=== PATIENT | male | born 1995 | race Hispanic/Latino ===

== ENCOUNTER 2023-04-21 08:29 | Emergency (ER) | payer SELFPAY ==
[2023-04-21] MEDS ORDERED: Ketorolac Tromethamine 30 MG/ML VIAL ONE (10:07)
[2023-04-21 10:19] LABS: #Basophils 0.1 10x3/uL (0.0-0.2); #Eosinphils 0.2 10x3/uL (0.0-0.5); #Monocytes 0.8 10x3/uL (0.0-1.1); #Neutrophils 2.5 10x3/uL (1.5-8.4); %Eosinophils 3.3 % (0.0-6.0); %Lymphocytes 31.8 % (18.0-47.0); %Monocytes 14.9 % (0.0-10.0); %Neutrophils 48.8 % (40.0-75.0); Hematocrit 43.8 % (38.8-50.0); Hemoglobin 15.2 g/dL (13.5-17.5); Mean Corpuscular HGB CONC 34.7 g/dL (32.0-36.0); Mean Corpuscular Hemoglobin 32.8 pg (27.0-33.0); Mean Corpuscular Volume 94.4 fl (81.2-95.1); Mean Platelet Volume 9.3 fl (7.4-10.4); Platelet Count 325 10x3/uL (150-450); Red Blood Cell (RBC) Count 4.64 10x6/uL (4.32-5.72); White Blood Cell (WBC) Count 5.1 10x3/uL (3.5-10.5)
[2023-04-21 10:41] LABS: ALT (SGPT) 33 U/L (8-55); AST (SGOT) 29 U/L (5-34); Albumin 4.4 g/dL (3.5-5.0); Alkaline Phosphatase 72 U/L (40-110); Anion Gap 15 mmol/L (10-20); BUN (Urea Nitrogen) 17 mg/dL (8.9-20.6); Bilirubin, Total 0.4 mg/dL (0.2-1.2); CK (CPK) 71 U/L (30-200); Calc. Creatinine Clearance 0 mL/min (70-130); Calcium 10.1 mg/dL (7.8-10.44); Carbon Dioxide 27 mmol/L (22-29); Chloride 101 mmol/L (98-107); Estimated GFR 118; Globulin 3.2 g/dL (2.4-3.5); Glucose 94 mg/dL (70-105); Potassium 4.3 mmol/L (3.5-5.1); Protein, Total 7.6 g/dL (6.0-8.3); Sodium 139 mmol/L (136-145)
== END 2023-04-21 11:30 | disposition home or self-care (01) ==
LOC: CSHERS 08:29
DX: M79.605 Pain in left leg (principal)
CPT/HCPCS: 80053; 82550; 83735; 85025; 96374; J1885